=== PATIENT | male | born 1995 | race Caucasian/White ===

== ENCOUNTER 2017-02-19 01:01 | Inpatient (IN) ==
[2017-02-19] MEDS ORDERED: *HR* LORazepam 2 MG/ML VIAL IVP ONE (01:27)
[2017-02-19] MEDS ORDERED: 0.9 % Sodium Chloride 1,000 ML IVC ONE ×3 (01:29→04:41)
[2017-02-19] MEDS ORDERED: Ondansetron 4 MG/2 ML VIAL IVP ONE (01:29)
[2017-02-19 01:56] LABS: Basophils % 0.2 %; Eosinophils % 0.1 %; Hematocrit 51.5 % (37.5-50.1); Hemoglobin 18.1 g/dL (12.9-16.9); Immature Granulocytes % 0.8 % (0-4); Lymphocytes # 3.5 K/mcL (0.6-4.6); Lymphocytes % 19.6 %; Mean Corpuscular HGB Conc 35.1 g/dL (31.6-35.5); Mean Corpuscular Hemoglobin 28.2 pg (28.0-33.3); Mean Corpuscular Volume 80.3 fL (83.0-100.0); Mean Platelet Volume 10.4 fL (9.4-12.4); Monocytes # 1.9 K/mcL (0.0-1.3); Monocytes % 10.9 %; Neutrophils # 12.1 K/mcL (1.6-8.9); Platelet Count 461 K/mcL (140-400); Red Blood Count 6.41 M/mcL (4.19-5.50); Red Cell Distribution Width 13.9 % (11.5-14.5); Segmented Neutrophils % 68.4 %
[2017-02-19 02:10] LABS: Alanine Aminotransferase 40 Units/L (0-55); Albumin 4.7 g/dL (3.5-5.0); Albumin/Globulin Ratio 0.9 (1.1-2.2); Alkaline Phosphatase 137 Units/L (38-126); Aspartate Amino Transferase 25 Units/L (5-34); BUN/Creatinine Ratio 49 (6-26); Bilirubin,Indirect 1.4 mg/dL (0.0-1.2); Bilirubin,Total 2.4 mg/dL (0.2-1.2); Blood Urea Nitrogen 65 mg/dL (8-26); Carbon Dioxide 26 mEq/L (19-29); Chloride 86 mEq/L (98-109); Glucose 120 mg/dL (70-99); Large Platelets Present (Not Present); Lipase 51 Units/L (8-78); Osmolality,Calculated 290 (280-300); Platelet Estimate Increased (Normal); Potassium 3.3 mEq/L (3.5-4.5); Reactive Lymphocytes Present (Not Present); Sodium 130 mEq/L (136-145); Total Protein 9.7 g/dL (6.0-8.3); eGFR For African Americans > 60 (> 60); eGFR For Non-African Americans > 60 (> 60)
--- NOTE | 2017-02-19 02:45 | Emergency Department Note ---
Disposition Clinical Impression: Alcohol withdrawal, Benzodiazepine withdrawal Disposition: Admitted As Inpatient Condition: Fair Time of Disposition: 02:49 General Adult HPI - General Chief complaint: ED General Medical Stated complaint: withdrawl from alcohol, xanx Time Seen by Provider: 02/19/17 01:09 Source: patient Mode of arrival: ambulatory Limitations: no limitations Nursing Notes Reviewed: Yes Vital Signs Reviewed: Yes - History of Present Illness HPI Narrative: 21-year-old male presents from [facility] for withdrawal from alcohol and benzos. He states that he takes for bars of Xanax daily as well as 0.5 mg of Ativan 3 times a day and 24 cans of beer daily prior to going to the [facility] 4 days ago. Since then he has developed persistent vomiting, tremulousness, and malaise. He has a history of withdrawal seizures twice in the past, but not in the last week. He denies any other illness or injury. He admits to chills without fevers. He denies any hematemesis. No melena. No abdominal pain. Pain Scale: 5 - Related Data Previous Rx's Medication Instructions Recorded Ibuprofen [Motrin] 800 mg PO Q8HR #30 tablet 06/23/16 Hydrocodone/Acetaminophen [[place] 1 tab PO Q4H PRN #20 tab 06/26/16 5-325 Tablet] Allergies Allergy/AdvReac Type Severity Reaction Status Date / Time No Known Allergies Allergy Verified 06/23/16 10:18 All systems ED: reviewed and negative except as stated. Past Medical History - Past Medical History Attestation: Yes The following information was validated with the patient. Source: patient Medical history: Reports: non-contributory Psychiatric history: Reports: no psych history - Social History Smoking Status: Current every day smoker Smokeless Tobacco Status: No Alcohol use: Reports: heavy Drug use: Reports: prescription drug abuse Physical Exam - Head Head exam: atraumatic, normocephalic, normal inspection - Eye Eye exam: Present: normal appearance, PERRL, EOMI - ENT ENT exam: normal exam, normal oropharynx, mucous membranes moist - Neck Neck exam: Present: normal inspection, full ROM, trachea midline - Chest Chest inspection: Present: normal inspection, symmetric chest wall rise - Respiratory Respiratory exam: Clear to auscultation bilaterally without wheezes rales or rhonchi Cardiovascular Tachycardic and regular. - Abdominal Exam Abdominal exam: Present: soft, Non-Tender. Absent: tenderness, distention, guarding, rebound, rigidity - Extremities Exam Extremities exam: Present: normal inspection, full ROM - Expanded Lower Extremity Exam Hip/Pelvis exam: Present: normal inspection, full ROM - Back Exam Back exam: Present: normal inspection, full ROM. Absent: tenderness, CVA tenderness (R), CVA tenderness (L) - Neurological Exam Neurological exam: Present: alert, oriented X3, CN II-XII intact - Psychiatric anxious - Skin Skin exam: Present: warm, dry, intact, normal color - General Limitations: no limitations General appearance: alert, in no apparent distress Course - Reevaluation(s) Reevaluation #1: Heart rate improved from 140s to100 after Ativan 2 mg IV. Patient is receiving IV fluids. He will need to be admitted to the hospital for further treatment of his alcohol and benzo withdrawal. Labs show significant volume depletion consistent with the patient's persistent vomiting. Time: 02:47 Reevaluation #2: Accepted by Dr. Ortiz Vital Signs Temperature 97.7 F 02/19/17 01:03 Pulse Rate 142 02/19/17 01:03 Respiratory Rate 18 02/19/17 01:03 Blood Pressure 135/86 02/19/17 01:03 O2 Sat by Pulse Oximetry 93 02/19/17 01:03 Temperature 0 F L 02/19/17 03:12 Pulse Rate 94 02/19/17 03:04 Respiratory Rate 0 02/19/17 03:12 Blood Pressure 0/0 02/19/17 03:12 O2 Sat by Pulse Oximetry 98 02/19/17 03:04 Oxygen Delivery Oxygen Delivery Room Air Medical Decision Making - Lab Data Result diagrams: 02/19/17 01:45 02/19/17 01:45 Lab Results 02/19/17 02/19/17 Range/Units 01:45 01:45 WBC 17.7 H (4.3-11.1) K/mcL RBC 6.41 H (4.19-5.50) M/mcL Hgb 18.1 H (12.9-16.9) g/dL Hct 51.5 H (37.5-50.1) % MCV 80.3 L (83.0-100.0) fL MCH 28.2 (28.0-33.3) pg MCHC 35.1 (31.6-35.5) g/dL RDW 13.9 (11.5-14.5) % Plt Count 461 H (140-400) K/mcL MPV 10.4 (9.4-12.4) fL Immature Gran % 0.8 (0-4) % Seg Neutrophils % 68.4 % Lymphocytes % 19.6 % Monocytes % 10.9 % Eosinophils % 0.1 % Basophils % 0.2 % Neutrophils # 12.1 H (1.6-8.9) K/mcL Lymphocytes # 3.5 (0.6-4.6) K/mcL Monocytes # 1.9 H (0.0-1.3) K/mcL Eosinophils # 0.0 (0.0-0.6) K/mcL Basophils # 0.0 (0.0-0.2) K/mcL Reactive Lymphocytes Present A (Not Present) Platelet Estimate Increased H (Normal) Large Platelets Present A (Not Present) Sodium 130 L (136-145) mEq/L Potassium 3.3 L (3.5-4.5) mEq/L Chloride 86 L (98-109) mEq/L Carbon Dioxide 26 (19-29) mEq/L BUN 65 H (8-26) mg/dL Creatinine 1.34 H (0.72-1.25) mg/dL Est GFR ( Amer) > 60 (> 60) Est GFR (Non-Af Amer) > 60 (> 60) BUN/Creatinine Ratio 49 H (6-26) Glucose 120 H (70-99) mg/dL Calculated Osmolality 290 (280-300) Calcium 10.0 (8.6-10.8) mg/dL Total Bilirubin 2.4 H (0.2-1.2) mg/dL Direct Bilirubin 1.0 H (0.0-0.5) mg/dL Indirect Bilirubin 1.4 H (0.0-1.2) mg/dL AST 25 (5-34) Units/L ALT 40 (0-55) Units/L Alkaline Phosphatase 137 H (38-126) Units/L Serum Total Protein 9.7 H (6.0-8.3) g/dL Albumin 4.7 (3.5-5.0) g/dL Globulin 5.0 H (2.4-3.5) g/dL Albumin/Globulin Ratio 0.9 L (1.1-2.2) Lipase 51 (8-78) Units/L - EKG Data EKG #1 EKG attestation: Yes I reviewed and interpreted this EKG. EKG results narrative: EKG shows sinus tachycardia at 101 with normal axis and intervals. No ST elevation or depression. No T-wave inversions or flattening. No old EKG available. Attestation Statement - Attestation Attestation: I, Saji Kaminski, examined this patient and my medical decision-making was reviewed with the AUDITOR SUPERVISOR/PA/Advanced Practice Nurse/Resident Physician. I agree with the documented findings, disposition and treatment plan as described except to the extent set forth below. 21-year-old male presents with concerns of nausea and tachycardia. Patient states he drinks a case of beer a day and takes multiple Xanax a day for his anxiety. Patient is now in [facility] and has been without alcohol or his medications for multiple days. Patient states he has had a seizure in the past when trying to stop EtOH use. Patient denies audio or visual hallucinations. Patient is tachycardic to 142 in emergency department on his arrival. He is mildly diaphoretic and nauseated. Patient has lungs that are clear to auscultation bilaterally his abdomen is nontender to palpation. Patient is possibly withdrawing from alcohol and benzodiazepines. He was given Ativan emergency department with improvement of his heart rate however he is also also likely hemoconcentrated and dehydrated and is continuing to improve with IV fluids. Patient feels comfortable with the plan for admission to the hospital for further care and evaluation of possible benzodiazepine and alcohol withdrawal.
[2017-02-19] MEDS ORDERED: 0.9 % Sodium Chloride 1,000 ML ONE (04:39)
[2017-02-19] MEDS ORDERED: Naloxone 0.4 MG/ML INJ IVP PRN (05:13)
[2017-02-19] MEDS ORDERED: Acetaminophen 325 MG TABLET PO PRN (05:20)
[2017-02-19] MEDS ORDERED: *HR* LORazepam 2 MG/ML VIAL IVP PRN (05:26)
[2017-02-19] MEDS ORDERED: 0.9 % Sodium Chloride 1,000 ML IVC SCH (05:30)
[2017-02-19] MEDS: *HR* Heparin 5,000 UNIT/ML VIAL SQ SCH ×2 (05:49→18:27)
--- NOTE | 2017-02-19 05:50 | Internal Med History&Physical ---
Date of Encounter: 02/19/17 Time of Encounter: 04:30 Assessment and Plan (1) Alcohol withdrawal Current visit: Yes Status: Acute Will start the patient on alcohol withdrawal protocol and monitor. Qualifiers: Complication of substance-induced condition: with unspecified complication Qualified Code(s): F10.239 - Alcohol dependence with withdrawal, unspecified (2) Benzodiazepine withdrawal Current visit: Yes Status: Acute Started on Alcohol withdrawal protocol with ativan. Seizure precautions. 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 Labs suggest hemoconcentration. On IV fluids and monitor renal function (4) Hypokalemia Current visit: Yes Status: Acute Likely due to volume depletion and KRYSTA. Replenish (5) Hyponatremia Current visit: Yes Status: Acute Likely due to volume depletion / KRYSTA (6) Substance abuse Current visit: Yes Status: Chronic (7) Nicotine dependence Current visit: Yes Status: Chronic On nicotine patches Qualifiers: Nicotine product type: cigarettes Substance use status: uncomplicated Qualified Code(s): F17.210 - Nicotine dependence, cigarettes, uncomplicated Internal Medicine - H&P: HPI Chief complaint: Alcohol withdrawal Admitted From: Emergency Dept Plans for Post Hospital Care: Transfer Other History of present illness: Mr. Rg is a 21 year old male [facility] for withdrawal from alcohol and benzos. He was drinking a case of beers (?24 cans) a day and taking 2-3, 2 mg xanax tablets multiple times /day, as well as 0.5 mg of Ativan 3 times a day prior to going to the [facility] 4 days ago (his last use was on 02/15/17). He also reports IVDU, but apparently not used in 3 weeks. He reports nausea, tremulousness and malaise. Reports feeling hot and cold. No significant chest pain, abdominal pain, dysuria or hematuria. Reports 3 episodes of loose BMs yesterday. In the ER, he was noted to be tachycardic with heart rate in the 140s , which improved with IV normal saline and Ativan 2 mg IV. He is admitted to the hospitalist service for further management. He reports that he was tested for HIV and hepatitis in july 2016 and apparently negative Past Med Surg Social Fam HX - Past Medical History Medical history: non-contributory Psychiatric history: no psych history - Social History Smoking Status: Current every day smoker Smokeless Tobacco Status: No Alcohol use: heavy Drug use: prescription drug abuse - Additional Family History Additional family history: Family Hx reviewed and is not contributory to current admission Internal Medicine - H&P: Meds Ibuprofen [Motrin] 800 mg PO Q8HR #30 tablet 06/23/16 [Rx] Hydrocodone/Acetaminophen [[place] 5-325 Tablet] 1 tab PO Q4H PRN #20 tab [Rx] Allergies No Known Allergies Allergy (Verified 06/23/16 10:18) All Systems PM: A 10-system review of systems was performed and is negative for pertinent findings except as documented above in the HPI. - Constitutional Vitals: Temp Pulse Resp BP Pulse Ox 97.4 F L 93 16 129/83 92 02/19/17 05:25 02/19/17 05:25 02/19/17 05:25 02/19/17 05:25 02/19/17 05:25 Exam: General: Anxious at the time of my evaluation HEENT: Oral mucosa is moist. No conjunctival palor or scleral icterus Neck: No obvious neck swellings Lungs: Clear to auscultation Cardiac: Regular rate and rhythm. No significant murmurs Abdomen: Soft, non tender. Bowel sounds present Genitourinary: No jang catheter Neurological: Alert and oriented. No gross localizing deficits Psych: Not aggressive or agitated Extremities: no significant leg edema Skin: Track bowling on the dorsum of the hands Internal Med - H&P Results - Labs CBC & Chem 7: 02/19/17 01:45 02/19/17 01:45 - EKG Data -: EKG Interpreted by Myself EKG shows normal: sinus rhythm Rate: tachycardia - Impressions ITS Impressions Chest X-Ray 02/19/17 01:28 IMPRESSION: 1. No acute cardiopulmonary disease. D/ / Michael Clemons MD / Michael Clemons MD Interpreting Provider: Michael Clemons MD
[2017-02-19] MEDS ORDERED: Nicotine 14 MG PATCH.TD24 TD SCH (05:52)
[2017-02-19 06:46] LABS: Magnesium 3.4 mg/dL (1.6-2.6)
[2017-02-19] MEDS: *HR* LORazepam 2 MG/ML VIAL IVP PRN ×3 (08:04→22:38)
[2017-02-19 11:57] LABS: Bilirubin,Urine Negative (Negative); Blood,Urine Negative (Negative); Clarity,Urine Clear (Clear); Color,Urine Yellow (Yellow); Glucose,Urine (UA) Normal (Normal); Ketones,Urine Trace mg/dL (Negative); Leukocyte Esterase,Urine Negative (Negative); Nitrite,Urine Negative (Negative); PH,Urine 7.5 pH Units (5.0-8.0); Protein,Urine Negative (Neg-Trace); Specific Gravity,Urine 1.022 (1.010-1.025); Urobilinogen,Urine Normal (Normal)
[2017-02-19 12:01] LABS: Amphetamine Screen,Urine Negative ng/mL (Cutoff=1000); Barbiturate Screen,Urine Negative ng/mL (Cutoff=200); Benzodiazepines Screen,Urine Negative ng/mL (Cutoff=200); Cannabinoid Screen,Urine Negative ng/mL (Cutoff = 50); Cocaine Screen,Urine Negative ng/mL (Cutoff= 300); Opiate Screen,Urine Negative ng/mL (Cutoff=300); Phencyclidine Screen,Urine Negative ng/mL (Cutoff=25)
--- NOTE | 2017-02-19 12:20 | Internal Med Progress Note ---
<Victor Hugo Felipe - Last Filed: 02/19/17 12:30> Date of Encounter: 02/19/17 Time of Encounter: 12:17 - Assessment and plan (1) Alcohol withdrawal Current Visit: Yes Status: Acute Assessment and plan: Patient states he was drinking 24 cans of beer a day prior to going to care home. Last drink was in 02/15/17. Continue serial protocol. Continue banana bag. Continue IV fluids. Heart rate less than 100, afebrile, patient does not have tremors. Quick alert and oriented 3. Urine tox negative. Qualifiers: Complication of substance-induced condition: uncomplicated Qualified Code(s ): F10.230 - Alcohol dependence with withdrawal, uncomplicated (2) Benzodiazepine withdrawal Current Visit: Yes Status: Acute Assessment and plan: Patient takes 2-3, 2 mg Xanax tablets multiple times a day and also 0.5 mg of Ativan 3 times a day. Patient states he mixes With water and snorts it. Last use was 02/15/70. Has history of IV drug use. Continue serial protocol. Qualifiers: Complication of substance-induced condition: with unspecified complication Qualified Code(s): F13.239 - Sedative, hypnotic or anxiolytic dependence with withdrawal, unspecified (3) Acute kidney injury Current Visit: Yes Status: Acute Assessment and plan: Patient's serum creatinine is 1.34 with a BUN/creatinine ratio 49. On presentation patient was tachycardic with heart rate of 140. Patient stated had nausea, diarrhea. He had 3 loose bowel movements yesterday. He denied abdominal pain, chest pain. Patient reported dysuria. Urinalysis negative for infection. This is most likely secondary to dehydration Patient's tachycardia improved with IV fluids. Continue IV fluids. BMP in morning. (4) Nicotine dependence Current Visit: Yes Status: Chronic Assessment and plan: Patient is currently in a smoker. Continue nicotine patches. Qualifiers: Nicotine product type: cigarettes Substance use status: uncomplicated Qualified Code(s): F17.210 - Nicotine dependence, cigarettes, uncomplicated (5) Hypokalemia Current Visit: Yes Status: Acute Assessment and plan: On presentation patient's potassium was 3.3. Maybe secondary to diarrhea. Patient was given 40 mg potassium. (6) Hyponatremia Current Visit: Yes Status: Acute Assessment and plan: Hypovolemic hyponatremia. Secondary to dehydration. Continue IV fluids. (7) DVT prophylaxis Current Visit: Yes Status: Acute Assessment and plan: heparin SQ. - Subjective Interval history: 21-year-old male presents from care home for alcohol and benzodiazepine withdrawal. Patient is awake and alert and oriented to time place situation. Denies CP, abdominal pain, nausea, tremors, sweating. Reports dysuria - Constitutional Vitals: Temp Pulse Resp BP Pulse Ox 97.9 F 78 18 128/89 96 02/19/17 07:05 02/19/17 07:05 02/19/17 07:05 02/19/17 07:05 02/19/17 07:05 General appearance: Present: A&O X 3 - Respiratory Respiratory exam: Present: CTAB. Absent: accessory muscle use, rales, rhonchi, wheezes - Cardiovascular Cardiovascular exam: Present: RRR, +S1, +S2 - GI/Abdominal GI/Abdominal exam: Present: normal bowel sounds, soft, no peritoneal signs. Absent: distended, tenderness - Extremities Exam Extremities exam: Present: warm, radial pulses palpable and symetrical. Absent : calf tenderness, cyanotic, pedal edema - Neurological Exam Neurological exam: Present: CN II-XII intact, oriented X3, no focal deficits. Absent: pronater drift, facial droop, speech deficit - Skin Skin exam: Present: dry, intact Internal Medicine: Result - Labs CBC & Chem 7: 02/19/17 01:45 02/19/17 01:45 Labs: Urine 02/19/17 Range/Units 11:45 Urine Color Yellow (Yellow) Urine Clarity Clear (Clear) Urine pH 7.5 (5.0-8.0) pH Units Ur Specific [place] 1.022 (1.010-1.025) Urine Protein Negative (Neg-Trace) mg/dL Urine Glucose (UA) Normal (Normal) mg/dL Consult Discharge Plan - Plan Referrals: NO,PCP [Primary Care Provider] - <Frederick Leonard - Last Filed: 02/19/17 18:51> Date of Encounter: 02/19/17 - Constitutional Vitals: Temp Pulse Resp BP Pulse Ox 97.9 F 94 15 118/77 98 02/19/17 15:00 02/19/17 15:00 02/19/17 15:00 02/19/17 15:00 02/19/17 15:00 Internal Medicine: Result - Labs CBC & Chem 7: 02/19/17 01:45 02/19/17 01:45 Labs: Urine 02/19/17 Range/Units 11:45 Urine Color Yellow (Yellow) Urine Clarity Clear (Clear) Urine pH 7.5 (5.0-8.0) pH Units Ur Specific [place] 1.022 (1.010-1.025) Urine Protein Negative (Neg-Trace) mg/dL Urine Glucose (UA) Normal (Normal) mg/dL - Attending Attestation Pt admitted earlier today with acute ETOH and benzo withdrawal. He is alert and interactive. Plan Continue CIWA Consider return to care home on ium (cannot get in until Tuesday night) Other plan as ordered
[2017-02-19] MEDS: Thiamine (B-1) 100 MG, Folic Acid 1 MG, MVI, adult with vitamin K 10 ML in 0.9 % Sodi... IVPB SCH (18:26)
[2017-02-20] MEDS: *HR* LORazepam 2 MG/ML VIAL IVP PRN ×4 (02:09→13:17)
[2017-02-20] MEDS: *HR* Heparin 5,000 UNIT/ML VIAL SQ SCH ×2 (05:20→17:08)
[2017-02-20 06:45] LABS: Basophils % 0.1 %; Eosinophils # 0.1 K/mcL (0.0-0.6); Eosinophils % 0.5 %; Hematocrit 40.2 % (37.5-50.1); Hemoglobin 13.3 g/dL (12.9-16.9); Immature Granulocytes % 0.9 % (0-4); Lymphocytes # 2.8 K/mcL (0.6-4.6); Lymphocytes % 28.8 %; Mean Corpuscular HGB Conc 33.1 g/dL (31.6-35.5); Mean Corpuscular Hemoglobin 28.1 pg (28.0-33.3); Mean Platelet Volume 10.1 fL (9.4-12.4); Monocytes # 0.9 K/mcL (0.0-1.3); Monocytes % 9.6 %; Neutrophils # 5.9 K/mcL (1.6-8.9); Platelet Count 311 K/mcL (140-400); Red Blood Count 4.73 M/mcL (4.19-5.50); Red Cell Distribution Width 13.3 % (11.5-14.5); Segmented Neutrophils % 60.1 %
[2017-02-20 08:27] LABS: BUN/Creatinine Ratio 15 (6-26); Blood Urea Nitrogen 11 mg/dL (8-26); Calcium 8.2 mg/dL (8.6-10.8); Carbon Dioxide 20 mEq/L (19-29); Chloride 108 mEq/L (98-109); Glucose 106 mg/dL (70-99); Osmolality,Calculated 282 (280-300); Potassium 3.6 mEq/L (3.5-4.5); Sodium 136 mEq/L (136-145); eGFR For African Americans > 60 (> 60); eGFR For Non-African Americans > 60 (> 60)
[2017-02-20] MEDS ORDERED: Ondansetron 4 MG/2 ML VIAL IVP SCH (09:44)
[2017-02-20] MEDS: Nicotine 21 MG PATCH.TD24 TD SCH (10:07)
[2017-02-20] MEDS ORDERED: *HR* LORazepam 2 MG/ML VIAL IVP PRN ×2 (11:20→11:21)
--- NOTE | 2017-02-20 11:23 | Internal Med Progress Note ---
<Victor Hugo Felipe - Last Filed: 02/20/17 11:21> Date of Encounter: 02/20/17 Time of Encounter: 11:21 - Assessment and plan (1) Alcohol withdrawal Current Visit: Yes Status: Acute Assessment and plan: Patient states he was drinking 24 cans of beer a day prior to going to nursing home. Last drink was in 02/15/17. Continue CIWA protocol decreased ativan dose by 1/2. Continue banana bag. d/c IVF Heart rate less than 100, afebrile, patient does not have tremors. Quick alert and oriented 3. Urine tox negative. Qualifiers: Complication of substance-induced condition: uncomplicated Qualified Code(s ): F10.230 - Alcohol dependence with withdrawal, uncomplicated (2) Benzodiazepine withdrawal Current Visit: Yes Status: Acute Assessment and plan: Patient takes 2-3, 2 mg Xanax tablets multiple times a day and also 0.5 mg of Ativan 3 times a day. Patient states he mixes With water and snorts it. Last use was 02/15/70. Has history of IV drug use. Continue CIWA protocol. Qualifiers: Complication of substance-induced condition: with unspecified complication Qualified Code(s): F13.239 - Sedative, hypnotic or anxiolytic dependence with withdrawal, unspecified (3) Acute kidney injury Current Visit: Yes Status: Resolved Assessment and plan: Patient's serum creatinine is 1.34 with a BUN/creatinine ratio 49. On presentation patient was tachycardic with heart rate of 140. Patient stated had nausea, diarrhea. He had 3 loose bowel movements yesterday. He denied abdominal pain, chest pain. Patient reported dysuria. Urinalysis negative for infection. This is most likely secondary to dehydration Patient's tachycardia improved with IV fluids. d/c IVF BMP in morning. (4) Nicotine dependence Current Visit: Yes Status: Chronic Assessment and plan: Patient is currently in a smoker. Continue nicotine patches. Qualifiers: Nicotine product type: cigarettes Substance use status: uncomplicated Qualified Code(s): F17.210 - Nicotine dependence, cigarettes, uncomplicated (5) Hypokalemia Current Visit: Yes Status: Resolved Assessment and plan: On presentation patient's potassium was 3.3. Maybe secondary to diarrhea. Resolved. Now 3.6 (6) Hyponatremia Current Visit: Yes Status: Resolved Assessment and plan: Hypovolemic hyponatremia. Secondary to dehydration. Resolved. . (7) DVT prophylaxis Current Visit: Yes Status: Acute Assessment and plan: heparin SQ. - Subjective Interval history: Patient states that he had one bout of vomiting and also diarrhea last night. He has not complaints. - Constitutional Vitals: Temp Pulse Resp BP Pulse Ox 98.3 F 98 18 112/69 95 02/20/17 07:35 02/20/17 07:35 02/20/17 07:35 02/20/17 07:35 02/20/17 07:35 General appearance: Present: A&O X 3 - Respiratory Respiratory exam: Present: CTAB. Absent: accessory muscle use, rales, rhonchi, wheezes - Cardiovascular Cardiovascular exam: Present: RRR, +S1, +S2. Absent: diastolic murmur, gallop, rubs, systolic murmur - GI/Abdominal GI/Abdominal exam: Present: normal bowel sounds, soft, no peritoneal signs. Absent: distended, tenderness - Extremities Exam Extremities exam: Present: warm, radial pulses palpable and symetrical. Absent : calf tenderness, cyanotic, pedal edema Internal Medicine: Result - Labs CBC & Chem 7: 02/20/17 06:24 02/20/17 06:25 Labs: Short CBC 02/20/17 Range/Units 06:24 WBC 9.8 (4.3-11.1) K/mcL Hgb 13.3 D (12.9-16.9) g/dL Hct 40.2 (37.5-50.1) % Plt Count 311 (140-400) K/mcL Neutrophils # 5.9 (1.6-8.9) K/mcL BMP 02/20/17 06:25 Sodium 136 Potassium 3.6 Chloride 108 D Carbon Dioxide 20 BUN 11 D Creatinine 0.75 Glucose 106 H Calcium 8.2 L D Urine 02/19/17 Range/Units 11:45 Urine Color Yellow (Yellow) Urine Clarity Clear (Clear) Urine pH 7.5 (5.0-8.0) pH Units Ur Specific [place] 1.022 (1.010-1.025) Urine Protein Negative (Neg-Trace) mg/dL Urine Glucose (UA) Normal (Normal) mg/dL Consult Discharge Plan - Plan Referrals: NO,PCP [Primary Care Provider] - <Frederick Leonard - Last Filed: 02/20/17 18:41> Date of Encounter: 02/20/17 - Assessment and plan (1) Alcohol withdrawal Current Visit: Yes Status: Acute Qualifiers: Complication of substance-induced condition: uncomplicated Qualified Code(s ): F10.230 - Alcohol dependence with withdrawal, uncomplicated (2) Benzodiazepine withdrawal Current Visit: Yes Status: Acute Qualifiers: Complication of substance-induced condition: with unspecified complication Qualified Code(s): F13.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 - Sedative, hypnotic or anxiolytic dependence with withdrawal, unspecified (3) Nicotine dependence Current Visit: Yes Status: Chronic Qualifiers: Nicotine product type: cigarettes Substance use status: uncomplicated Qualified Code(s): F17.210 - Nicotine dependence, cigarettes, uncomplicated - Constitutional Vitals: Temp Pulse Resp BP Pulse Ox 97.4 F L 77 16 127/57 97 02/20/17 16:00 02/20/17 16:00 02/20/17 16:00 02/20/17 16:00 02/20/17 16:00 Internal Medicine: Result - Labs CBC & Chem 7: 02/20/17 06:24 02/20/17 06:25 Labs: Short CBC 02/20/17 Range/Units 06:24 WBC 9.8 (4.3-11.1) K/mcL Hgb 13.3 D (12.9-16.9) g/dL Hct 40.2 (37.5-50.1) % Plt Count 311 (140-400) K/mcL Neutrophils # 5.9 (1.6-8.9) K/mcL BMP 02/20/17 06:25 Sodium 136 Potassium 3.6 Chloride 108 D Carbon Dioxide 20 BUN 11 D Creatinine 0.75 Glucose 106 H Calcium 8.2 L D - Attending Attestation I examined this patient and my medical decision-making was reviewed with the Resident Physician on 02/20/17. I agree with the documented findings, disposition and treatment plan as described except to the extent set forth below. Mr Rg is currently admitted for acute alcohol and benzo withdrawal. He is high risk due to need for multiple IV meds. Mr. Rg is asking for a lot more medications. He is not confused or tremulous. No fever or chills. Exam Alert. Comfortable Heart reg and not tachy Lung clear I/P 1. ETOH and benzo withdrawal - Decrease CIWA Plan d/c tomorrow on PO med taper.
[2017-02-20] MEDS: Ondansetron 4 MG/2 ML VIAL IVP PRN ×2 (13:18→21:31)
[2017-02-20] MEDS: Thiamine (B-1) 100 MG, Folic Acid 1 MG, MVI, adult with vitamin K 10 ML in 0.9 % Sodi... IVPB SCH (20:10)
--- NOTE | 2017-02-20 20:10 | Electrocardiograph Report ---
[address] [address] Test Date: 2017-02-19 Pat Name: Sha Rg Department: 104 Room: [facility] Gender: M Facility Supervisor: : 1995 Requested By: Checo Barton Order Number: [id number] Reading MD: Cirilo Guerin MD Measurements Intervals [place] Rate: 101 P: 63 GA: 128 QRS: 62 QRSD: 90 T: 62 QT: 377 QTc: 435 Interpretive Statements SINUS TACHYCARDIA LEFT ATRIAL ENLARGEMENT Electronically Signed On 02-20-2017 20:08:48 EDT by Cirilo Guerin MD
[2017-02-21] MEDS: *HR* LORazepam 2 MG/ML VIAL IVP PRN (03:48)
[2017-02-21] MEDS: *HR* Heparin 5,000 UNIT/ML VIAL SQ SCH (05:08)
[2017-02-21] MEDS: Nicotine 21 MG PATCH.TD24 TD SCH (08:23)
--- NOTE | 2017-02-21 08:36 | Discharge Summary ---
Date of Encounter: 02/21/17 Time of Encounter: 08:29 - Discharge Diagnosis (1) Alcohol withdrawal Priority: Primary Status: Acute Qualifiers: Complication of substance-induced condition: uncomplicated Qualified Code(s ): F10.230 - Alcohol dependence with withdrawal, uncomplicated (2) Benzodiazepine withdrawal Priority: Primary Status: Acute Qualifiers: Complication of substance-induced condition: uncomplicated Qualified Code(s ): F13.230 - Sedative, hypnotic or anxiolytic dependence with withdrawal, uncomplicated (3) Nicotine dependence Priority: Secondary Status: Chronic Qualifiers: Nicotine product type: cigarettes Substance use status: uncomplicated Qualified Code(s): F17.210 - Nicotine dependence, cigarettes, uncomplicated (4) Cephalgia Priority: Secondary Status: Chronic Qualifiers: Headache type: tension-type Headache chronicity pattern: chronic headache Intractability: not intractable Qualified Code(s): G44.229 - Chronic tension -type headache, not intractable (5) Hypokalemia Priority: Secondary Status: Resolved (6) Hyponatremia Priority: Secondary Status: Resolved (7) Acute kidney injury Priority: Secondary Status: Resolved - Discharge Medications Prescriptions: Chlordiazepoxide [Librium] 25 mg PO QID #10 capsule Home Medications: Chlordiazepoxide [Librium] 25 mg PO QID #10 capsule 02/21/17 [Rx] Allergies/Adverse Reactions: Allergies No Known Allergies Allergy (Verified 06/23/16 10:18) Date of admission: 02/19/17 05:20 Primary care physician: PCP NO Consults: 02/19/17 05:26 Consult to [employer] [CONS] Routine Reason for SW Consult: Alcohol abuse Discharging clinician: Frederick Leonard Anticipated date of discharge: 02/21/17 - Patient Status Disposition: Transfer Other Condition: Good Functional capacity at discharge: independent ambulation Overall status at discharge: patient is progressing back to baseline - Discharge Instructions Follow Up With: NO,PCP [Primary Care Provider] - - Diet and Activity Activity: increase activity as tolerated Diet: regular diet Hospital course: Mr. Rg is a 21 year old male with hx of chronic ETOH and benzo abuse sent from the assisted with acute withdrawl. He was complaining of nausea, tremulousness and malaise. He was evaluated in ED and admitted for further care. Mr. Rg was admitted to [facility]. He was started on IV fluids and CIWA with Ativan. Initially he required higher doses of Ativan but gradually the amount decreased. He also had some nausea and headache treated with PRN medications. His heartrate improved with IV fluids and his BP remained stable. On 02/21 he was afebrile with stable vitals. He had some headache for which he received Tylenol. PO Librium was started at low dose to be tapered over 4 days. At that time he was felt ready to be discharged back to the assisted. - Time Spent with Patient Total time spent providing and/or coordinating discharge services: 40min - Constitutional Vitals: Temp Pulse Resp BP Pulse Ox 97.5 F L 103 17 134/81 99 02/21/17 07:02/21/17 07:17 02/21/17 07:17 02/21/17 07:02/21/17 07:17 General appearance: Present: A&O X 3, answers questions appropriately - Head Head exam: Present: normocephalic - Eye Eye exam: Present: conjuntiva pink - ENT ENT exam: Present: mucous membranes moist - Respiratory Respiratory exam: Present: CTAB. Absent: rales, rhonchi, wheezes - Cardiovascular Cardiovascular exam: Present: RRR, tachycardia Additional comments: Heart rate about 100. - GI/Abdominal GI/Abdominal exam: Present: soft. Absent: tenderness - Extremities Exam Extremities exam: Present: warm. Absent: tenderness - Neurological Exam Neurological exam: Present: alert, oriented X3, no focal deficits - Skin Skin exam: Present: warm. Absent: rash
[2017-02-21] MEDS ORDERED: 0.9 % Sodium Chloride 1,000 ML IVC SCH (09:00)
[2017-02-21] MEDS ORDERED: Thiamine (B-1) 100 MG TABLET PO SCH (09:00)
[2017-02-21] MEDS ORDERED: 0.9 % Sodium Chloride 500 ML IVC SCH (09:30)
[2017-02-21 11:12] VITALS: BP 124/78
[2017-02-21] MEDS ORDERED: Mag Hydrox/Al Hydrox/Simeth 30 ML UDC PO PRN (14:23)
== END 2017-02-21 14:45 | disposition other institution (70) | DRG 897 ==
LOC: 2NENU 01:01 → EMEROO 01:01 → 2NENU 04:17
PROVIDERS: ADMIT Internal Medicine; ATTEND Internal Medicine

== ENCOUNTER 2019-11-11 19:17 | Inpatient (IN) ==
[2019-11-11] MEDS ORDERED: 0.9 % Sodium Chloride 1,000 ML IVC ONE (19:36)
[2019-11-11 20:02] LABS: Basophils % 0.4 %; Eosinophils % 0.4 %; Hematocrit 44.4 % (37.5-50.1); Hemoglobin 15.7 g/dL (12.9-16.9); Immature Granulocytes % 0.2 % (0-4); Lymphocytes # 1.6 K/mcL (0.6-4.6); Lymphocytes % 29.2 %; Mean Corpuscular HGB Conc 35.4 g/dL (31.6-35.5); Mean Corpuscular Hemoglobin 31.7 pg (28.0-33.3); Mean Corpuscular Volume 89.5 fL (83.0-100.0); Mean Platelet Volume 9.8 fL (9.4-12.4); Monocytes # 0.5 K/mcL (0.0-1.3); Monocytes % 9.7 %; Neutrophils # 3.2 K/mcL (1.6-8.9); Platelet Count 251 K/mcL (140-400); Red Blood Count 4.96 M/mcL (4.19-5.50); Red Cell Distribution Width 12.5 % (11.5-14.5); Segmented Neutrophils % 60.1 %; White Blood Count 5.4 K/mcL (4.3-11.1)
[2019-11-11 20:23] LABS: Acetaminophen < 10 mcg/mL (10-20); Alanine Aminotransferase 14 Units/L (7-52); Albumin 4.8 g/dL (3.5-5.7); Albumin/Globulin Ratio 1.7 (1.1-2.2); Alkaline Phosphatase 100 Units/L (34-104); Aspartate Amino Transferase 20 Units/L (13-39); BUN/Creatinine Ratio 15 (6-26); Bilirubin,Total 0.4 mg/dL (0.3-1.0); Blood Urea Nitrogen 12 mg/dL (6-20); Calcium 9.6 mg/dL (8.6-10.3); Carbon Dioxide 22 mEq/L (23-29); Chloride 101 mEq/L (98-107); Ethanol < 10 mg/dL (Less than 10); Globulin 2.9 g/dL (2.4-3.5); Glucose 104 mg/dL (70-105); Magnesium 1.7 mg/dL (1.6-2.6); Osmolality,Calculated 282 (280-300); Phosphorous < 1.0 mg/dL (2.7-4.5); Potassium 3.1 mEq/L (3.5-5.1); Sodium 136 mEq/L (136-145); Total Protein 7.7 g/dL (6.4-8.9); eGFR For African Americans > 60 (> 60); eGFR For Non-African Americans > 60 (> 60)
[2019-11-11] MEDS ORDERED: Potassium Chloride Elixir 20 MEQ/15 ML UDC PO ONE (20:28)
[2019-11-11] MEDS ORDERED: Potassium Phosphate 44 MEQ in 0.9 % Sodium Chloride 250 ML IVPB ONE (20:30)
[2019-11-11] MEDS ORDERED: SUMAtriptan succinate 50 MG TABLET PO ONE (22:24)
[2019-11-11] MEDS ORDERED: Naloxone 0.4 MG/ML INJ IVP PRN (22:53)
[2019-11-11 23:18] LABS: Amphetamine Screen,Urine Negative ng/mL (Cutoff=1000); Barbiturate Screen,Urine Negative ng/mL (Cutoff=200); Benzodiazepines Screen,Urine Negative ng/mL (Cutoff=200); Bilirubin,Urine Negative (Negative); Blood,Urine Negative (Negative); Cannabinoid Screen,Urine Negative ng/mL (Cutoff = 50); Clarity,Urine Clear (Clear); Cocaine Screen,Urine Negative ng/mL (Cutoff= 300); Color,Urine Yellow (Yellow); Glucose,Urine (UA) Normal (Normal); Ketones,Urine Negative (Negative); Leukocyte Esterase,Urine Negative (Negative); Nitrite,Urine Negative (Negative); Opiate Screen,Urine Negative ng/mL (Cutoff=300); Phencyclidine Screen,Urine Negative ng/mL (Cutoff=25); Protein,Urine Negative (Neg-Trace); Specific Gravity,Urine 1.016 (1.010-1.025); Urobilinogen,Urine Normal (Normal)
[2019-11-11 23:36] LABS: VBG HCO3 27 mEq/L (21-27); VBG PCO2 56 mmHg (41-51); VBG PH 7.29 pH Units (7.32-7.42); VBG PO2 123 mmHg (25-50)
[2019-11-11 23:49] LABS: C-Reactive Protein < 5 mg/L (Less than 10); Creatine Kinase 49 Units/L (30-223)
[2019-11-12 00:04] LABS: Thyroid Stimulating Hormone 1.053 mcIU/mL (0.340-5.600)
[2019-11-12] MEDS ORDERED: Magnesium Oxide 400 MG TABLET PO ONE ×2 (00:12)
[2019-11-12 04:27] LABS: Basophils % 0.2 %; Eosinophils # 0.1 K/mcL (0.0-0.6); Eosinophils % 1.6 %; Hematocrit 41.5 % (37.5-50.1); Hemoglobin 14.6 g/dL (12.9-16.9); Immature Granulocytes % 0.2 % (0-4); Lymphocytes % 31.4 %; Mean Corpuscular HGB Conc 35.2 g/dL (31.6-35.5); Mean Corpuscular Hemoglobin 32.2 pg (28.0-33.3); Mean Corpuscular Volume 91.4 fL (83.0-100.0); Monocytes # 0.6 K/mcL (0.0-1.3); Monocytes % 9.1 %; Neutrophils # 3.7 K/mcL (1.6-8.9); Platelet Count 226 K/mcL (140-400); Red Blood Count 4.54 M/mcL (4.19-5.50); Red Cell Distribution Width 12.7 % (11.5-14.5); Segmented Neutrophils % 57.5 %; White Blood Count 6.3 K/mcL (4.3-11.1)
[2019-11-12 04:47] LABS: BUN/Creatinine Ratio 10 (6-26); Blood Urea Nitrogen 7 mg/dL (6-20); Calcium 8.7 mg/dL (8.6-10.3); Carbon Dioxide 25 mEq/L (23-29); Chloride 104 mEq/L (98-107); Glucose 97 mg/dL (70-105); Magnesium 1.8 mg/dL (1.6-2.6); Osmolality,Calculated 280 (280-300); Phosphorous 4.5 mg/dL (2.7-4.5); Potassium 4.3 mEq/L (3.5-5.1); Sodium 136 mEq/L (136-145); Troponin I < 0.03 ng/mL (< 0.04); eGFR For African Americans > 60 (> 60); eGFR For Non-African Americans > 60 (> 60)
[2019-11-12] MEDS ORDERED: Melatonin 3 MG TABLET PO SCH (05:00)
[2019-11-12] MEDS ORDERED: Gadolinium Contrast Agent (WT Based) IV PRN ×2 (09:46→14:46)
[2019-11-12 10:39] LABS: Estimated Average Glucose 91 mg/dl
[2019-11-12 13:06] LABS: BUN/Creatinine Ratio 9 (6-26); Blood Urea Nitrogen 7 mg/dL (6-20); Calcium 8.9 mg/dL (8.6-10.3); Carbon Dioxide 30 mEq/L (23-29); Chloride 99 mEq/L (98-107); Glucose 103 mg/dL (70-105); Magnesium 2.3 mg/dL (1.6-2.6); Osmolality,Calculated 282 (280-300); Phosphorous 2.8 mg/dL (2.7-4.5); Potassium 4.2 mEq/L (3.5-5.1); Sodium 137 mEq/L (136-145); eGFR For African Americans > 60 (> 60); eGFR For Non-African Americans > 60 (> 60)
[2019-11-12] MEDS ORDERED: Fluticasone Propionate Nasal 50 MCG/SPRAY BOTTLE NS PRN (14:46)
[2019-11-12] MEDS ORDERED: levETIRAcetam 1,000 MG in 0.9 % Sodium Chloride 100 ML IVPB ONE (15:15)
[2019-11-12] MEDS: GENVOYA PO SCH (16:09)
[2019-11-12] MEDS: Nicotine 14 MG PATCH.TD24 TD SCH (17:41)
[2019-11-12] MEDS: hydrOXYzine pamoate 25 MG CAPSULE PO PRN (20:31)
[2019-11-12] MEDS: levETIRAcetam 250 MG TABLET PO SCH (20:31)
[2019-11-12] MEDS: Mirtazapine 15 MG TABLET PO SCH (20:31)
[2019-11-12] MEDS: Melatonin 3 MG TABLET PO SCH (20:31)
[2019-11-13 05:24] LABS: Basophils % 0.2 %; Eosinophils # 0.1 K/mcL (0.0-0.6); Eosinophils % 2.4 %; Hematocrit 41.8 % (37.5-50.1); Hemoglobin 14.8 g/dL (12.9-16.9); Immature Granulocytes % 0.2 % (0-4); Lymphocytes # 1.8 K/mcL (0.6-4.6); Mean Corpuscular HGB Conc 35.4 g/dL (31.6-35.5); Mean Corpuscular Hemoglobin 31.3 pg (28.0-33.3); Mean Corpuscular Volume 88.4 fL (83.0-100.0); Mean Platelet Volume 9.7 fL (9.4-12.4); Monocytes # 0.6 K/mcL (0.0-1.3); Monocytes % 13.6 %; Platelet Count 237 K/mcL (140-400); Red Blood Count 4.73 M/mcL (4.19-5.50); Red Cell Distribution Width 12.4 % (11.5-14.5); Segmented Neutrophils % 43.6 %; White Blood Count 4.6 K/mcL (4.3-11.1)
[2019-11-13] MEDS: Nicotine 14 MG PATCH.TD24 TD SCH ×3 (08:10→19:41)
[2019-11-13] MEDS: levETIRAcetam 250 MG TABLET PO SCH ×2 (08:10→20:56)
[2019-11-13] MEDS: GENVOYA PO SCH (08:11)
[2019-11-13] MEDS: hydrOXYzine pamoate 25 MG CAPSULE PO PRN (19:33)
[2019-11-13] MEDS: Mirtazapine 15 MG TABLET PO SCH (20:56)
[2019-11-13] MEDS: Melatonin 3 MG TABLET PO SCH (20:56)
[2019-11-13] MEDS ORDERED: tiZANidine 4 MG TABLET PO ONE (21:53)
[2019-11-14 07:37] VITALS: BP 119/84
[2019-11-14] MEDS: levETIRAcetam 250 MG TABLET PO SCH (10:06)
[2019-11-14] MEDS: hydrOXYzine pamoate 25 MG CAPSULE PO PRN (10:07)
[2019-11-14] MEDS: GENVOYA PO SCH (10:07)
[2019-11-14] MEDS: Nicotine 14 MG PATCH.TD24 TD SCH (10:08)
[2019-11-16 09:45] LABS: HIV-1 Viral Load Interp DETECTED (Not Detected)
== END 2019-11-14 15:00 | disposition home or self-care (01) | DRG 53 ==
LOC: ICNU 19:17 → EMEROOARM 19:17 → ICNU 21:52 → SUATTDRO 11-12 07:17 → 2NENU 11-13 15:22
PROVIDERS: ADMIT Family Medicine; ATTEND Family Medicine